=== PATIENT | female | born 1995 | race Caucasian/White ===

== ENCOUNTER 2017-10-15 09:15 | Emergency (ER) | payer BC ==
[2017-10-15 09:38] VITALS: BP 118/83
[2017-10-15] MEDS ORDERED: Acetaminophen TAB* 325 MG PO ONE (09:43)
--- NOTE | 2017-10-15 09:54 | UC ---
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 No hematemesis or diarrhea or melena. She started to get vomiting again yesterday and developed a cough and sore throat. NO rashes. NO prior medical problems and denies prior surgery. - History of Current Complaint Chief Complaint: UCGeneralIllness Stated Complaint: vomiting/cough Time Seen by Provider: 10/15/17 09:31 Hx Obtained From: Patient Hx Last Menstrual Period: 08/28/17 Onset/Duration: Gradual Onset, Lasting Days Severity: Moderate Pain Intensity: 5 Cough: Nonproductive Associated Signs & Symptoms: Positive: Dysphagia, Fever, Vomiting. Negative: Wheezing, Hoarseness, Sinus Discomfort, Nasal Discharge, Rash - Allergies/Home Medications Allergies/Adverse Reactions: Allergies Allergy/AdvReac Type Severity Reaction Status Date / Time No Known Allergies Allergy Verified 10/15/17 09:39 PMH/Surg Hx/FS Hx/Imm Hx Previously Healthy: Yes - Surgical History Surgical History: Yes Surgery Procedure, Year, and Place: wisdom teeth extraction - Family History Known Family History: Positive: Other - no related family history. Family History: no HTN hx - Social History Occupation: Employed Full-time Lives: With Family Alcohol Use: None Substance Use Type: None Smoking Status (MU): Never Smoked Tobacco - Immunization History Vaccination Up to Date: Yes Review of Systems Constitutional: Fever ENT: Sore Throat, Ear Ache Respiratory: Cough Gastrointestinal: Vomiting, Nausea Genitourinary: Negative All Other Systems Reviewed And Are Negative: Yes Physical Exam Triage Information Reviewed: Yes Appearance: Well-Appearing, No Pain Distress, Well-Nourished Vital Signs: Initial Vital Signs Temp 100.5 F 10/15/17 09:33 Pulse 110 10/15/17 09:33 Resp 20 10/15/17 09:33 BP 118/83 10/15/17 09:33 Pulse Ox 99 10/15/17 09:33 Vital Signs Reviewed: Yes Eyes: Positive: Conjunctiva Clear ENT: Positive: Normal ENT inspection Neck: Positive: Supple, Nontender, No Lymphadenopathy Respiratory: Positive: Lungs clear, Normal breath sounds, No respiratory distress, No accessory muscle use. Negative: Respiratory distress, Decreased breath sounds, Accessory muscle use, Crackles, Rhonchi, Stridor, Wheezing Cardiovascular: Positive: No Murmur, Pulses Normal, Brisk Capillary Refill, Tachycardia Abdomen Description: Positive: Nontender, No Organomegaly, Soft. Negative: CVA Tenderness (R), CVA Tenderness (L), Distended, Guarding Musculoskeletal: Positive: Strength Intact, ROM Intact, No Edema Neurological: Positive: Alert, Muscle Tone Normal. Negative: Fatigued Psychological: Positive: Age Appropriate Behavior Skin: Negative: rashes Throat Pain/Nasal Course/Dx - Differential Dx/Diagnosis Provider Diagnoses: viral illness. Discharge - Sign-Out/Discharge Documenting (check all that apply): Discharge - Discharge Plan Condition: Good Disposition: HOME Prescriptions: Ondansetron ODT TAB* [Zofran 4 MG Odt TAB*] 4 mg PO Q6H PRN #10 tab.odt PRN Reason: Nausea Referrals: Non Staff,Doctor [Primary Care Provider] - - Billing Disposition and Condition Condition: GOOD Disposition: HOME
== END 2017-10-15 10:01 | disposition home or self-care (01) ==
LOC: UCCORT 09:15
DX: B34.9 Viral infection, unspecified (principal); Z32.02 Encounter for pregnancy test, result negative
CPT/HCPCS: 84702; 87651; 99212; A9270-GY; G0463